=== PATIENT | male | born 1975 | race Caucasian/White ===

== ENCOUNTER 2018-06-09 14:21 | Inpatient (IN) | payer OTHER, BC ==
[2018-06-09 17:14] LABS: ADD MAN DIFF? NO
[2018-06-09 17:18] LABS: WHITE BLOOD COUNT 6.5 10^3/ul (4.8-10.8)
[2018-06-09 17:18] LABS: BASOPHILS % 0.5 % (0.0-2.0); EOSINOPHILS # 0.1 10^3/ul (0.0-0.5); EOSINOPHILS % 1.4 % (0.0-7.0); HEMATOCRIT 44.9 % (42.0-52.0); HEMOGLOBIN 14.9 g/dl (14.0-18.0); LYMPHOCYTES # 1.4 10^3/ul (0.8-2.9); LYMPHOCYTES % 20.8 % (15.0-51.0); MEAN CORPUSCULAR HEMOGLOBIN 30.3 pg (29.0-33.0); MEAN CORPUSCULAR HGB CONC 33.2 g/dl (32.0-37.0); MEAN CORPUSCULAR VOLUME 91.3 fl (82.0-101.0); MEAN PLATELET VOLUME 8.6 fl (7.4-10.4); MONOCYTE # 0.5 10^3/ul (0.3-0.9); NEUTROPHIL # 4.5 10^3/ul (1.6-7.5); PLATELET COUNT 177 10^3/UL (140-415); RED BLOOD COUNT 4.92 10^6/ul (4.70-6.10); RED CELL DISTRIBUTION WIDTH 12.1 % (11.5-14.5)
[2018-06-09 18:51] LABS: ALANINE AMINOTRANSFERASE 28 IU/L (13-69); ALBUMIN 5.1 g/dl (3.3-4.9); ALBUMIN/GLOBULIN RATIO 1.88; ALKALINE PHOSPHATASE 52 IU/L (42-121); ANION GAP 12 (8-16); ASPARTATE AMINO TRANSFERASE 37 IU/L (15-46); BILIRUBIN,INDIRECT 0.6 mg/dl (0-1.1); BILIRUBIN,TOTAL 0.6 mg/dl (0.2-1.3); BLOOD UREA NITROGEN 13 mg/dl (7-20); CALCIUM 9.7 mg/dl (8.4-10.2); CARBON DIOXIDE 32 mmol/L (21-31); CHLORIDE 103 mmol/L (97-110); CREATININE 0.68 mg/dl (0.61-1.24); GLUCOSE 95 mg/dl (70-220); POTASSIUM 4.4 mmol/L (3.5-5.1); SODIUM 143 mmol/L (135-144); TOTAL PROTEIN 7.8 g/dl (6.1-8.1)
[2018-06-09 19:02] LABS: TROPONIN-I < 0.010 ng/ml (0.000-0.120)
[2018-06-10] MEDS ORDERED: ACETAMINOPHEN 325 MG TAB PO (00:30)
[2018-06-10] MEDS ORDERED: NACL 0.9% 3 ML SYG IV (00:30)
[2018-06-10] MEDS ORDERED: ONDANSETRON 4 MG INJ IV (00:30)
[2018-06-10 01:36] LABS: HAAIG REFLEX REFLEX FILED
[2018-06-10 04:46] LABS: HEPATITIS B SURFACE ANTIGEN NEGATIVE (NEGATIVE)
[2018-06-10 05:03] LABS: HEPATITIS B CORE ANTIBODY NEGATIVE (NEGATIVE); HEPATITIS C VIRAL ANTIBODY NEGATIVE (NEGATIVE); HIV 1&2 ANTIBODY NEGATIVE (NEGATIVE)
[2018-06-10 08:28] LABS: INR 0.93; PROTIME 12.5 Sec (11.9-14.9)
[2018-06-10] MEDS ORDERED: CEPASTAT LOZENGE MT (15:00)
[2018-06-10] MEDS ORDERED: GUAIFENESIN 20 MG/ML 5ML CUP PO (15:00)
[2018-06-10 16:10] LABS: RAPID PLASMA REAGIN NONREACTIVE (NR)
[2018-06-10] MEDS: HEPARIN 5,000 UNIT/0.5 ML VIAL SC (21:00)
[2018-06-10 21:35] LABS: TIME 2130
[2018-06-10 21:36] LABS: SITE Left Upper Forearm
[2018-06-11] MEDS: LEVOFLOXACIN 500 MG TAB PO (06:00)
[2018-06-11 07:22] LABS: ADD MAN DIFF? NO
[2018-06-11 07:24] LABS: BASOPHIL # 0.1 10^3/ul (0.0-0.1); BASOPHILS % 0.9 % (0.0-2.0); EOSINOPHILS # 0.6 10^3/ul (0.0-0.5); EOSINOPHILS % 10.4 % (0.0-7.0); HEMATOCRIT 49.2 % (42.0-52.0); HEMOGLOBIN 16.2 g/dl (14.0-18.0); LYMPHOCYTES # 1.7 10^3/ul (0.8-2.9); LYMPHOCYTES % 29.4 % (15.0-51.0); MEAN CORPUSCULAR HEMOGLOBIN 30.3 pg (29.0-33.0); MEAN CORPUSCULAR HGB CONC 32.9 g/dl (32.0-37.0); MEAN PLATELET VOLUME 8.9 fl (7.4-10.4); MONOCYTE # 0.5 10^3/ul (0.3-0.9); NEUTROPHIL # 2.9 10^3/ul (1.6-7.5); NEUTROPHILS % 51.1 % (39.0-77.0); PLATELET COUNT 215 10^3/UL (140-415); RED BLOOD COUNT 5.35 10^6/ul (4.70-6.10); RED CELL DISTRIBUTION WIDTH 12.1 % (11.5-14.5)
[2018-06-11 07:24] LABS: WHITE BLOOD COUNT 5.8 10^3/ul (4.8-10.8)
[2018-06-11 07:39] LABS: HEMOGLOBIN A1C 5.6 % (0-5.9)
[2018-06-11 07:44] LABS: ALANINE AMINOTRANSFERASE 27 IU/L (13-69); ALBUMIN 5.2 g/dl (3.3-4.9); ALBUMIN/GLOBULIN RATIO 1.57; ALKALINE PHOSPHATASE 45 IU/L (42-121); ANION GAP 18 (8-16); ASPARTATE AMINO TRANSFERASE 35 IU/L (15-46); BILIRUBIN,INDIRECT 0.7 mg/dl (0-1.1); BILIRUBIN,TOTAL 0.7 mg/dl (0.2-1.3); BLOOD UREA NITROGEN 22 mg/dl (7-20); CALCIUM 9.7 mg/dl (8.4-10.2); CARBON DIOXIDE 26 mmol/L (21-31); CHLORIDE 104 mmol/L (97-110); CREATININE 0.89 mg/dl (0.61-1.24); GLUCOSE 92 mg/dl (70-220); MAGNESIUM 2.1 mg/dl (1.7-2.5); PHOSPHORUS 4.5 mg/dl (2.5-4.9); POTASSIUM 4.4 mmol/L (3.5-5.1); SODIUM 144 mmol/L (135-144); TOTAL PROTEIN 8.5 g/dl (6.1-8.1)
[2018-06-11] MEDS: HEPARIN 5,000 UNIT/0.5 ML VIAL SC ×2 (08:01→21:25)
[2018-06-11] MEDS: SOD CHLORIDE 0.9% 500 ML (08:25)
[2018-06-11] MEDS: MIDAZOLAM 1 MG/ML 2 ML INJ (08:55)
[2018-06-11] MEDS: FENTAnyl 50 MCG/ML VIAL (08:58)
[2018-06-11] MEDS: LIDOCAINE 1% (MDV) 10 ML INJ ×2 (09:08)
[2018-06-11 13:52] LABS: ANA SCREEN NEGATIVE (NEGATIVE)
[2018-06-11 14:38] LABS: NIL 0.11 IU/mL; QUANTIFERON(R)-TB GOLD POSITIVE (NEGATIVE); TB-NIL 1.18 IU/mL
[2018-06-12] MEDS: LEVOFLOXACIN 500 MG TAB PO (05:45)
[2018-06-12] MEDS: HEPARIN 5,000 UNIT/0.5 ML VIAL SC ×2 (08:33→20:31)
[2018-06-12 22:04] LABS: FORTY EIGHT HOUR READING 0 mm (0-9)
[2018-06-13] MEDS: LEVOFLOXACIN 500 MG TAB PO (05:32)
[2018-06-13] MEDS: HEPARIN 5,000 UNIT/0.5 ML VIAL SC (08:04)
[2018-06-15 17:06] LABS: NIL 0.07 IU/mL; QUANTIFERON(R)-TB GOLD POSITIVE (NEGATIVE); TB-NIL 0.62 IU/mL
[2018-07-05 14:03] LABS: PROCALCITONIN <0.10 ng/mL (<0.10)
== END 2018-06-13 10:41 | disposition home or self-care (01) | DRG 203 ==
LOC: FTE 14:21 → PP2 23:58
PROC: 0BBF3ZX Excision of Right Lower Lung Lobe, Percutaneous Approach, Diagnostic (ICD-10-PCS; principal; 2018-06-11)
DX: J20.9 Acute bronchitis, unspecified (principal); J98.4 Other disorders of lung; J84.10 Pulmonary fibrosis, unspecified
CPT/HCPCS: 36415; 71045; 71250; 77012; 80053; 82164; 83036; 83735; 84100; 84145; 84443; 84484; 85025; 85610; 85651; 85730; 86038; 86480; 86580; 86592; 86635; 86703; 86704; 86709; 86803; 87070; 87075; 87102; 87116; 87340; 88307; 88312; 88313; 93005; 93306; 99285-25